=== PATIENT | female | born 1985 | race African-American/Black ===

== ENCOUNTER 2020-07-19 13:02 | Emergency (ER) | payer MEDICAID ==
[~2020-07-19] VITALS: Ht 157.5 cm; Wt 65.0 kg
[2020-07-19 13:19] LABS: BASOPHILS # (AUTO) 0.04 x10^3/uL (0-0.1); BASOPHILS % (AUTO) 1 % (0-1); EOSINOPHILS % (AUTO) 0 % (1-7); LYMPHOCYTES % (AUTO) 37 % (22-44); MD NO; MEAN CORPUSCULAR HEMOGLOBIN 33.6 pg (27.0-34.8); MEAN CORPUSCULAR HGB CONC 33.9 g/dL (32.4-35.8); MEAN CORPUSCULAR VOLUME 99.3 fL (80-100); MEAN PLATELET VOLUME 7.9 fL (7.4-10.4); MONOCYTES # (AUTO) 0.36 x10^3/uL (0.2-0.8); MONOCYTES % (AUTO) 12 % (2-9); NEUTROPHILS # (AUTO) 1.49 x10^3/uL (1.8-6.8); NEUTROPHILS % (AUTO) 50 % (42-75); PLATELET COUNT 176 x10^3/uL (130-400); RED BLOOD COUNT 4.33 x10^6/uL (3.82-5.3); RED CELL DISTRIBUTION WIDTH 13.1 % (9.6-15.2)
[2020-07-19 13:30] LABS: ANION GAP 14 mmol/L (5-15); CALCIUM 9.2 mg/dL (8.5-10.1); CHLORIDE 106 mmol/L (98-107)
[2020-07-19 13:32] LABS: ALANINE AMINOTRANSFERASE 70 U/L (12-78); ALKALINE PHOSPHATASE 139 U/L (45-117); BILIRUBIN,TOTAL 0.9 mg/dL (0.2-1.0); TOTAL PROTEIN 8.5 g/dL (6.4-8.2)
--- NOTE | 2020-07-19 13:43 | NUR ---
SEE TRIAGE. PT AMBULATORY TO BR WITH SBA. PT VOIDED BUT DID NOT COLLECT URINE INSTRUCTED. NO SIGN OF TRAUMA OR INCONTINENCE OBSERVED R/T POSSIBLE SEIZURE. PT FOLLOWS SOME COMMANDS BUT CONFUSED AT THIS TIME. ALL ROOM MONITORING AND SEIZURE PADS IN PLACE. WARM BLANKET AND CALL LIGHT PROVIDED.
--- NOTE | 2020-07-19 14:06 | NUR ---
PT TO CT.
[2020-07-19] MEDS ORDERED: SODIUM CHLORIDE 0.9% 1,000ML IVBOLUS ONE (14:30)
--- NOTE | 2020-07-19 14:45 | NUR ---
PT SLEEPING, NAD. PT CONTINUES TO ANSWER QUESTIONS. WITH IVF BOLUS EXPLAINED AND INITIATED, PT PUT ARM WITH IV OUT, DEMONSTRATING UNDERSTANDING. Addendum: 07/19/20 at 1544 by VANDA PT CONTINUES TO *NOT ANSWER QUESTIONS
[2020-07-19 15:35] VITALS: BP 131/56
--- NOTE | 2020-07-19 15:52 | NUR ---
PT PULLED OUT IV AND OUTSIDE OF ROOM IN [facility]. PT STATES "I'M READY TO LEAVE". PT ALSO STATES SHE WILL TAKE BUS TO FATHER'S HOUSE. PT AMBULATES WITH STEADY GAIT. ERP NOTIFIED AND PT WALKS TO DISCHARGE DESK WITHOUT PROBLEM.
== END 2020-07-19 16:07 | disposition home or self-care (01) ==
LOC: MERGE 15:55 → ED 15:55
DX: R56.9 Unspecified convulsions (principal); R55 Syncope and collapse; R41.82 Altered mental status, unspecified; R00.0 Tachycardia, unspecified; R51 Headache
CPT/HCPCS: 36415; 70450; 80053; 80307; 82140; 85025; 93005; 96360; 99285; J7030

== ENCOUNTER 2020-12-09 16:03 | Emergency (ER) | payer MEDICAID ==
[~2020-12-09] VITALS: Ht 154.9 cm; Wt 51.8 kg
[2020-12-09 16:19] VITALS: BP 120/80
--- NOTE | 2020-12-09 16:27 | NUR ---
SW HAS BEEN AT BEDSIDE.
--- NOTE | 2020-12-09 16:27 | NUR ---
[facility] [place] FROM [facility]. PT FOUND LAYING ON SIDEWALK, UNABLE TO AMBULATE. +ETOH. PT STATES 5MO PREG. PT CONNECTED TO PULSE OX. PT REFUSED TO REMOVE CLOTHING AND GET INTO GOWN. PT RESTING ON GURNEY. NADN. WILSON AT BEDSIDE FOR ASSESSMENT.
--- NOTE | 2020-12-09 16:41 | NUR ---
UNABLE TO BREATHALYZE AT THIS TIME. NOTIFIED. ORDER FOR BLOOD ETOH ALREADY ORDERED.
--- NOTE | 2020-12-09 17:14 | NUR ---
PT JYOTI 0.4, NEG HCG. PT TO BE MTF. PT RESTING COMFORTABLY ON GURNEY. RESP EVEN AND UNLABORED.
--- NOTE | 2020-12-09 17:39 | NUR ---
TASK RN: PT RESTING IN GURNEY W EYES CLOSED, EVEN/REGULAR RESPIRATIONS NOTED. EASILY ARROUSABLE TO VOICE AND LIGHT PHYSICAL STIM. PT TO CT WITH EMAIL PRODUCER.
--- NOTE | 2020-12-09 18:57 | NUR ---
PT REFUSING TO WEAR NASAL CANNULA. PT OXYGEN 86% RA.
--- NOTE | 2020-12-09 19:28 | NUR ---
PT SLEEPING ON GURNEY. RESP EVEN AND UNLABORED.
== END 2020-12-09 20:17 | disposition home or self-care (01) ==
LOC: EDBD 16:03 → MERGE 16:03 → ED 18:20
DX: S00.83XA Contusion of other part of head, initial encounter (principal); S09.90XA Unspecified injury of head, initial encounter; G92 Toxic encephalopathy; F10.229 Alcohol dependence with intoxication, unspecified; F17.200 Nicotine dependence, unspecified, uncomplicated; R51.9 Headache, unspecified; Y90.0 Blood alcohol level of less than 20 mg/100 ml; X58.XXXA Exposure to other specified factors, initial encounter; Y93.89 Activity, other specified; Y92.89 Other specified places as the place of occurrence of the external cause; Y99.8 Other external cause status
CPT/HCPCS: 36415; 70450; 70486; 80320; 84703; 99285; G0480

== ENCOUNTER 2020-12-15 15:05 | Emergency (ER) | payer MEDICAID ==
[~2020-12-15] VITALS: Ht 160 cm; Wt 55.0 kg
--- NOTE | 2020-12-15 15:28 | NUR ---
Note cynthiazeinab in EDM - 12/15/20 at 1539 by EMRE PT FOUND BY EMS WITH HEAVY ETOH SMELL. PT SLURING WORDS. FSBS IN ROUTE. PUT PT ON 2 LPM O2. FSBS 115 IN ROUTE. PT HAS OLD LOOKING BRUSE ON L EYE
--- NOTE | 2020-12-15 15:28 | NUR ---
PT FOUND BY EMS WITH HEAVY ETOH SMELL. PT SLURING WORDS. ABLE TO MOVE ALL EXT. FSBS IN ROUTE. PUT PT ON 2 LPM O2. FSBS 115 IN ROUTE. PT HAS A HEALING HEMATOMA ON L EYE./
--- NOTE | 2020-12-15 16:11 | NUR ---
PT IN BED RESTING, HEAVY SENT OF ETOH, UNABLE TO BREATHALIZE PT
--- NOTE | 2020-12-15 17:24 | NUR ---
TASK RN: PT IS ASLEEP IN [facility] AT THIS TIME; NADN. PT VSS AND UDATED IN EMR AT THIS TIME.
[2020-12-15 18:27] VITALS: BP 102/68
--- NOTE | 2020-12-15 18:27 | NUR ---
PT UP WALKING IN [place] WITH RN, SLIGHTLY UNSTEADY,. ASKING ABOUT A BUS PASS, ADMIN FOOD TRAY
--- NOTE | 2020-12-15 19:06 | NUR ---
PT WALKED OUT SELF WITH STEADY GAIT. REFUSED TAXI VOUCHER. VSS.
--- NOTE | 2020-12-15 19:08 | NUR ---
A& O X4
== END 2020-12-15 19:08 | disposition home or self-care (01) ==
LOC: MERGE 15:05 → EDBD 15:05 → ED 18:55
DX: S09.90XA Unspecified injury of head, initial encounter (principal); F10.120 Alcohol abuse with intoxication, uncomplicated; R41.82 Altered mental status, unspecified; Z72.9 Problem related to lifestyle, unspecified; W01.0XXA Fall on same level from slipping, tripping and stumbling without subsequent striking against object, initial encounter; Y93.89 Activity, other specified; Y92.89 Other specified places as the place of occurrence of the external cause; Y99.8 Other external cause status; Y90.0 Blood alcohol level of less than 20 mg/100 ml
CPT/HCPCS: 70450; 70486; 72125; 99285

== ENCOUNTER 2020-12-18 11:55 | Emergency (ER) | payer MEDICAID ==
[~2020-12-18] VITALS: Ht 165.1 cm; Wt 54.5 kg
--- NOTE | 2020-12-18 12:05 | NUR ---
BIB EMS FOR ETOH USE. PER EMS WAS FOUND SLEEPING ON SIDEWALK AND 911 CALLED. PT STATES ETOH USE "NOT TOO MUCH". PT HAS L EYE HEALING BRUISE. PER EMS WAS ALTERED THINKS SHE IS IN [place]. FOLLOWS COMMANDS. CLAIMS TO BE 56 MONTHS . 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 NADN. VSS. MARIA M VELARDE AT BEDSIDE FOR EVAL.
--- NOTE | 2020-12-18 13:10 | NUR ---
PT RESTING ON GURNEY. NADN. BUENO.
--- NOTE | 2020-12-18 13:21 | NUR ---
REPORT GIVEN TO AMIRA AVERY.
--- NOTE | 2020-12-18 13:25 | NUR ---
ASSUMING CARE OF PT. PT RESTING ON GURNEY, CONNECTED TO MONITORS, RESP EVEN AND UNLABORED,
--- NOTE | 2020-12-18 15:06 | NUR ---
PT SLEEPING ON GURNEY, CONNECTED TO MONITORING, RESP EVEN AND UNLABORED, MARIA R.
--- NOTE | 2020-12-18 15:40 | NUR ---
PT MORE AWAKE, REQUESTING WATER AND FOOD. RESP EVEN AND UNLABORED, NADN.
--- NOTE | 2020-12-18 15:44 | NUR ---
PT PROVIDED W/ MEAL TRAY. SITTING UP ON GURNEY W/ SIDE RAILS UPX2. RESP EVEN AND UNLABORED, NADN. CALL LIGHT IN REACH. ANSWERING QUESTIONS APPROPRIATELY.
--- NOTE | 2020-12-18 16:10 | NUR ---
PT DISCONNECTED SELF FROM MONITORING AND AMBULATED TO THE BR.
[2020-12-18 16:14] VITALS: BP 110/73
== END 2020-12-18 16:20 | disposition home or self-care (01) ==
LOC: ED 16:00
DX: S05.12XA Contusion of eyeball and orbital tissues, left eye, initial encounter (principal); H11.32 Conjunctival hemorrhage, left eye; F10.220 Alcohol dependence with intoxication, uncomplicated; Y90.0 Blood alcohol level of less than 20 mg/100 ml; X58.XXXA Exposure to other specified factors, initial encounter; Y93.89 Activity, other specified; Y92.89 Other specified places as the place of occurrence of the external cause; Y99.8 Other external cause status
CPT/HCPCS: 36415; 80320; 99283; G0480

== ENCOUNTER 2021-03-01 16:20 | Emergency (ER) | payer MEDICAID ==
[~2021-03-01] VITALS: Ht 180.3 cm; Wt 48.1 kg
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
--- NOTE | 2021-03-01 17:25 | NUR ---
PRECEPTOR RN NOTE: REPORT TAKEN FROM AMIRA LAZO, THIS RN AND RN ROSAURA ASSUMED CARE. PT A&O TO PERSON, PLACE AND TIME. REORIENTED TO SITUATION. PT DENIES INJURY/TRAUMA TODAY. PT IS NEUROLOGICALLY INTACT, NO MIDLINE CERVICAL TENDERNESS ON EXAM. PUPILS EQUAL, ROUND AND REACTIVE. NO WOUNDS VISUALIZED. ORDER RECEIVED FOR PO CHALLENGE.
--- NOTE | 2021-03-01 17:28 | NUR ---
pt tolerated po challenge with no s/sx aspiration, no n/v. notified.
[2021-03-01 18:16] VITALS: BP 130/76
--- NOTE | 2021-03-01 18:17 | NUR ---
PT RESTING COMFORTABLY IN BED. PT A&O TO PERSON, PLACE AND TIME. RESPS UNLABORED, BP AND SPO2 MONITORS IN PLACE. PT HAS NO COMPLAINTS AT THIS TIME.
--- NOTE | 2021-03-01 18:38 | NUR ---
PT EDUCATED ON DISCHARGE INSTRUCTIONS, VERBALIZED UNDERSTANDING. PT WHEELED TO DISCHARGE DESK. PT REFUSED TO WAIT FOR TAXI VOUCHER AND AMBULATED OUT OF THE FACILITY WITH STEADY GAIT.
--- NOTE | 2021-03-01 18:40 | NUR ---
PRECEPTOR RN NOTE: PT A&OX4, AMBULATORY WITH STEADY GAIT, TOLERATING PO'S AT TIME OF DC. PT WHEELED TO DC, INSTRUCTED TO AWAIT RN FOR TAXI VOUCHER, UPON RN RETURN, PT HAD AMBULATED OUT OF DEPT.
== END 2021-03-01 18:44 | disposition home or self-care (01) ==
LOC: ED 16:50
DX: F10.129 Alcohol abuse with intoxication, unspecified (principal); F17.200 Nicotine dependence, unspecified, uncomplicated; Y90.0 Blood alcohol level of less than 20 mg/100 ml
CPT/HCPCS: 99283

== ENCOUNTER 2021-03-02 10:21 | Observation (INO) | payer MEDICAID ==
[~2021-03-02] VITALS: Ht 157.5 cm; Wt 59.0 kg
[2021-03-02 11:17] VITALS: BP 109/74
--- NOTE | 2021-03-02 11:18 | NUR ---
TASK RN: PT SLEEPING ON OSCAR. NADN. BUENO.
[2021-03-02 11:21] LABS: BASOPHILS % (AUTO) 1 % (0-1); EOSINOPHILS % (AUTO) 1 % (1-7); LYMPHOCYTES % (AUTO) 38 % (22-44); MEAN CORPUSCULAR HEMOGLOBIN 32.6 pg (27.0-34.8); MEAN CORPUSCULAR HGB CONC 33.5 g/dL (32.4-35.8); MEAN PLATELET VOLUME 7.8 fL (7.4-10.4); MONOCYTES % (AUTO) 10 % (2-9); NEUTROPHILS % (AUTO) 51 % (42-75); PLATELET COUNT 92 x10^3/uL (130-400); RED BLOOD COUNT 4.03 x10^6/uL (3.82-5.3); RED CELL DISTRIBUTION WIDTH 15.8 % (9.6-15.2)
[2021-03-02 11:23] LABS: MD NO
--- NOTE | 2021-03-02 11:36 | NUR ---
TASK RN: LASHA COLLECTED, LABELED AND WALKED TO LAB.
[2021-03-02 11:47] LABS: ALANINE AMINOTRANSFERASE 103 U/L (12-78); ALBUMIN 2.7 g/dL (3.4-5.0); ALKALINE PHOSPHATASE 259 U/L (45-117); ANION GAP 10 mmol/L (5-15); BILIRUBIN,TOTAL 0.4 mg/dL (0.2-1.0); CALCIUM 7.3 mg/dL (8.5-10.1); CHLORIDE 109 mmol/L (98-107); CREATININE 0.39 mg/dL (0.55-1.02); TOTAL PROTEIN 7.1 g/dL (6.4-8.2)
[2021-03-02] MEDS ORDERED: POTASSIUM CHLORIDE 20 MEQ TAB.ER.PRT PO ONE (12:00)
[2021-03-02] MEDS ORDERED: MAGNESIUM OXIDE 400 MG TABLET PO ONE (12:00)
[2021-03-02 12:08] LABS: AMPHETAMINE SCREEN, URINE Negative (Negative); BARBITURATE SCREEN, URINE Negative (Negative); BENZODIAZEPINE SCREEN, URINE Negative (Negative); CANNABINOID SCREEN, URINE Negative (Negative); COCAINE SCREEN, URINE Negative (Negative); METHADONE SCREEN, URINE Negative (Negative); OPIATE SCREEN, URINE Negative (Negative)
[2021-03-02] MEDS ORDERED: DIPHENHYDRAMINE 50 MG/ML, 1ML IM PRN (12:30)
[2021-03-02] MEDS ORDERED: HALOPERIDOL 5 MG/ML IM PRN (12:30)
--- NOTE | 2021-03-02 13:15 | NUR ---
REPORT TO SUHA COLLIER
--- NOTE | 2021-03-02 13:35 | NUR ---
PT SLEEPING, APPLIED 2 L O2.
--- NOTE | 2021-03-02 14:28 | NUR ---
Break RN note: Pt awake, lying in bed, talking to herself, NADN. Pt refusing to allow this RN to apply BP cuff to assess BP. Continuous oxygen monitor in place, all safety measures observed.
--- NOTE | 2021-03-02 14:48 | NUR ---
Break RN note: Pt awake, ambulatory to bathroom with steady gait.
[2021-03-02] MEDS ORDERED: POTASSIUM CHLORIDE 20 MEQ TAB.ER.PRT ONE (14:53)
[2021-03-02] MEDS ORDERED: MAGNESIUM OXIDE 400 MG TABLET ONE (14:53)
--- NOTE | 2021-03-02 15:00 | NUR ---
Break RN note: This RN entered pt room, pt not in room. Pt not in bathroom. Pt noted by tank charger to walk out the ambulance bay door with steady gait. Pt left her backpack in room. Backpack labeled, placed at charge desk in the event pt returns for it.
== END 2021-03-03 15:01 | disposition home or self-care (01) ==
LOC: ED 10:34 → EDIP 14:20 → INTOOBSV 14:31 → OBSVTOIN 14:31 → UNDOADMOB 14:31 → EDIP 14:31 → UNDODISOB 15:27
PROVIDERS: ADMIT Emergency Medicine; ATTEND Emergency Medicine
DX: F10.220 Alcohol dependence with intoxication, uncomplicated (principal); Z63.8 Other specified problems related to primary support group
CPT/HCPCS: 36415; 80053; 80307; 80320; 84702; 85025; 99284; G0378; G0480

== ENCOUNTER 2021-07-24 19:36 | Inpatient (IN) | payer MEDICAID ==
[~2021-07-24] VITALS: Ht 162.6 cm; Wt 60.1 kg
[2021-08-08 02:00] VITALS: BP 98/56
== END 2021-08-08 11:00 | disposition left against medical advice (07) | DRG 720 ==
LOC: ED 22:22 → EDIP 22:28 → MERGE 22:28 → EDBD 22:28 → 4WST 07-25 10:30
PROVIDERS: ADMIT Family Medicine; ATTEND Internal Medicine
PROC: 0W9G3ZZ Drainage of Peritoneal Cavity, Percutaneous Approach (ICD-10-PCS; principal; 2021-07-24)
DX: A41.9 Sepsis, unspecified organism (principal); E43 Unspecified severe protein-calorie malnutrition; E87.2 Acidosis; R64 Cachexia; K70.11 Alcoholic hepatitis with ascites; D63.8 Anemia in other chronic diseases classified elsewhere; E83.51 Hypocalcemia; K70.31 Alcoholic cirrhosis of liver with ascites; E87.1 Hypo-osmolality and hyponatremia; F10.229 Alcohol dependence with intoxication, unspecified; E83.42 Hypomagnesemia; D53.9 Nutritional anemia, unspecified; E86.1 Hypovolemia; E87.6 Hypokalemia; F17.210 Nicotine dependence, cigarettes, uncomplicated; K62.5 Hemorrhage of anus and rectum; N39.0 Urinary tract infection, site not specified; Z16.29 Resistance to other single specified antibiotic; B96.4 Proteus (mirabilis) (morganii) as the cause of diseases classified elsewhere; D72.823 Leukemoid reaction; J98.11 Atelectasis; R32 Unspecified urinary incontinence; R79.1 Abnormal coagulation profile; D47.3 Essential (hemorrhagic) thrombocythemia; R94.31 Abnormal electrocardiogram [ECG] [EKG]; Z88.8 Allergy status to other drugs, medicaments and biological substances; Z59.0 Homelessness; Z79.899 Other long term (current) drug therapy; Z68.22 Body mass index [BMI] 22.0-22.9, adult